=== PATIENT | female | born 1990 | race Two or more races ===

== ENCOUNTER 2024-08-04 04:10 | Emergency (ER) | payer OTHER ==
[~2024-08-04] VITALS: Ht 162.6 cm; Wt 47.2 kg
[2024-08-04] MEDS ORDERED: KETOROLAC TROMETHAMINE 10 MG TABLET PO ONE (05:06)
[2024-08-04] MEDS ORDERED: KETOROLAC TROMETHAMINE 10 MG TABLET PO STA (05:26)
[2024-08-04] MEDS ORDERED: NEOMYCIN/POLYMYXIN B/HYDROCORT 20 DR/ML BOTTLE OT STA (05:27)
[2024-08-04] MEDS ORDERED: LIDOCAINE HCL 50 ML BOTT MM STA (05:27)
[2024-08-04] MEDS ORDERED: NEOMYCIN/POLYMYXIN B/HYDROCORT 20 DR/ML BOTTLE OT ONE (05:36)
[2024-08-04] MEDS ORDERED: LIDOCAINE HCL 4% Topic SOLUTION ONE (05:37)
[2024-08-04 06:39] LABS: COVID-19 AG NEGATIVE (NEGATIVE); INFLUENZA A AG NEGATIVE (NEGATIVE); INFLUENZA B AG NEGATIVE (NEGATIVE)
[2024-08-04] MEDS ORDERED: KETO10TA2 PO (06:47)
[2024-08-04] MEDS ORDERED: ZITHROMAX500 MG PO (06:47)
[2024-08-04] MEDS ORDERED: CORTISPORIN EAR10 M1 OPHT (06:49)
== END 2024-08-04 09:03 ==
LOC: ER 04:35
PROVIDERS: General Practice
DX: H92.01 Otalgia, right ear (principal); J06.9 Acute upper respiratory infection, unspecified; Z20.822 Contact with and (suspected) exposure to COVID-19